=== PATIENT | male | born 2000 | race Caucasian/White ===

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

== ENCOUNTER 2022-02-02 19:13 | Emergency (ER) | payer BC, OTHER | END 2022-02-02 20:10 | disposition home or self-care (01) | LOC: VM.ED 19:13 | DX: S60.221A Contusion of right hand, initial encounter (principal); W23.1XXA Caught, crushed, jammed, or pinched between stationary objects, initial encounter; Y99.0 Civilian activity done for income or pay | CPT/HCPCS: 73130-RT; 99283-25 ==

== ENCOUNTER 2022-04-01 13:15 | Emergency (ER) | payer OTHER | END 2022-04-01 13:37 | disposition home or self-care (01) | LOC: VM.ED 13:15 | DX: S01.452A Open bite of left cheek and temporomandibular area, initial encounter (principal); W54.0XXA Bitten by dog, initial encounter | CPT/HCPCS: 99283 ==

== ENCOUNTER 2022-04-20 20:19 | Emergency (ER) | payer OTHER | END 2022-04-20 21:21 | disposition home or self-care (01) | LOC: VM.ED 20:19 | DX: S67.190A Crushing injury of right index finger, initial encounter (principal); S60.021A Contusion of right index finger without damage to nail, initial encounter; W23.1XXA Caught, crushed, jammed, or pinched between stationary objects, initial encounter | CPT/HCPCS: 73140-F6; 99283 ==

== ENCOUNTER 2022-05-29 22:07 | Emergency (ER) | payer OTHER ==
[2022-05-29 22:20] VITALS: BP 137/96; PULSE 69
[2022-05-29] MEDS ORDERED: Sodium Chloride 0.9% 10 ML Syringe FLUSH PRN (22:21)
[2022-05-29] MEDS: Sodium Chloride 0.9% 1,000 ML IV SCH (22:35)
[2022-05-29] MEDS: Morphine 4 MG/ML Syringe IVPUSH ONE (22:39)
[2022-05-29] MEDS: Ondansetron 4 MG/2 ML SDV IVPUSH ONE (22:46)
[2022-05-29 22:49] LABS: PTT,PARTIAL THROMBOPLSTIN TIME 26.1 SEC (20.5-30.9)
[2022-05-29 22:51] LABS: CHLORIDE,CL 102 mmol/L (98-107); SODIUM,NA 144 mmol/L (136-145)
[2022-05-29 22:53] LABS: ANION GAP 15.3 mmol/L (5-15); ESTIMATED GFR 125 mL/min (>=60)
[2022-05-29] MEDS: Iopamidol 612 MG/ML 100 ML Bottle IVPUSH ONE (23:17)
[2022-05-30] MEDS ORDERED: Take Home: Ondansetron 4 MG Tab.DIS, 5 Tab Pack PO ONE (01:04)
[2022-05-30] MEDS: Take Home: Ondansetron 4 MG Tab.DIS, 5 Tab Pack PO ONE (01:21)
== END 2022-05-30 01:22 | disposition home or self-care (01) ==
LOC: VM.ED 22:07
DX: R10.9 Unspecified abdominal pain (principal)
CPT/HCPCS: 74177; 80053; 81003; 82150; 83690; 83735; 84100; 85025; 85610; 85730; 86140; 96361; 96374; 96375; 99284; 99284-25; J2270; J2405; J7030; Q0162; Q9967

== ENCOUNTER 2022-07-19 18:20 | Emergency (ER) | payer OTHER | END 2022-07-19 19:04 | disposition home or self-care (01) | LOC: VM.ED 18:20 | DX: S66.912A Strain of unspecified muscle, fascia and tendon at wrist and hand level, left hand, initial encounter (principal); W00.0XXA Fall on same level due to ice and snow, initial encounter | CPT/HCPCS: 73100-LT; 99283 ==

== ENCOUNTER 2022-10-13 12:10 | Emergency (ER) | payer OTHER ==
[2022-10-13 13:16] LABS: CORONAVIRUS COVID-19 NAA POSITIVE (NEGATIVE); RESPIRATORY SYNCYTIAL VIR NAA NEGATIVE (NEGATIVE)
== END 2022-10-13 13:54 | disposition home or self-care (01) ==
LOC: VM.ED 12:10
DX: U07.1 COVID-19 (principal)
CPT/HCPCS: 0241U; 99283

== ENCOUNTER 2023-01-18 19:04 | Emergency (ER) | payer OTHER ==
[2023-01-18] MEDS ORDERED: Glucagon,Human Recombinant 1 MG Vial IM ONE (19:13)
[2023-01-18] MEDS ORDERED: GI Cocktail Oral Solution 30 ML PO ONE (19:52)
== END 2023-01-18 20:47 | disposition home or self-care (01) ==
LOC: VM.ED 19:04
DX: R09.89 Other specified symptoms and signs involving the circulatory and respiratory systems (principal); Z86.16 Personal history of COVID-19
CPT/HCPCS: 96372; 99283; A9270-GY; J1610